=== PATIENT | female | born 1955 | race Caucasian/White ===

== ENCOUNTER → 2018-09-18 | Outpatient (CLI) | payer BC ==
[~2018-09-18] MED LIST: ALEV220C2 PO; ATEN50TA2 PO; COUM2.5T17 PO; LASI20TA3 PO; MULTCAP9 PO; OMEP20CA3 PO; PERC5TAB12 PO; TYLE325T5 PO; TYLE500T78 PO
== END ==
LOC: M PT 15:18
PROVIDERS: ATTEND Orthopaedic Surgery
DX: Z01.818 Encounter for other preprocedural examination (principal)

== ENCOUNTER → 2018-11-07 | Outpatient (CLI) | payer BC ==
[~2018-11-07] MED LIST changes: +ALEV220T22 PO; +AMIT100TA PO; +ATEN50TA9 PO; +MULTCAP PO; -OMEP20CA3 PO; +OMEP20CA4 PO; +OMEP40CA2 PO
[2018-11-07 08:44] LABS: HEMATOCRIT 43.2 % (36.0-47.0); HEMOGLOBIN 13.8 g/dl (12.0-15.5); MEAN CORPUSCULAR HEMOGLOBIN 30.1 pg (27.0-33.0); MEAN CORPUSCULAR HGB CONC 31.9 g/dl (32.0-36.5); MEAN CORPUSCULAR VOLUME 94.1 fl (80.0-96.0); PLATELET COUNT, AUTOMATED 263 10^3/uL (150-450); RED BLOOD COUNT 4.59 10^6/uL (4.00-5.40); WHITE BLOOD COUNT 6.1 10^3/uL (4.0-10.0)
--- NOTE | 2018-11-07 08:44 | REP ---
Clinical: Preoperative assessment for knee replacement . Comparison: 05/09/2015 . Technique: PA and lateral. Findings: The mediastinum and cardiac silhouette are normal. The lung frias are clear and without acute consolidation, effusion, or pneumothorax. The skeletal structures are intact and normal. Impression: 1. No acute cardiopulmonary process. Electronically Signed by Cleve Urbina MD 11/07/2018 08:35 A
[2018-11-07 08:49] LABS: INR 1.01
--- NOTE | 2018-11-07 08:56 | ECGEPIP ---
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
[2018-11-07 09:08] LABS: ALBUMIN 3.4 GM/DL (3.2-5.2); BILIRUBIN,TOTAL 0.3 MG/DL (0.2-1.0); CALCIUM LEVEL 8.7 MG/DL (8.8-10.2); CREATININE FOR GFR 1.11 MG/DL (0.55-1.30); GLOMERULAR FILTRATION RATE 52.5 (>45); POTASSIUM SERUM 3.7 MEQ/L (3.5-5.1); TOTAL PROTEIN 6.5 GM/DL (6.4-8.2)
[2018-11-07 09:24] LABS: ERYTHROCYTE SEDIMENTATION RATE 4 mm/hr (0-30)
== END ==
LOC: M LAB 07:58
PROVIDERS: ATTEND Orthopaedic Surgery
DX: Z01.818 Encounter for other preprocedural examination (principal); M17.11 Unilateral primary osteoarthritis, right knee

== ENCOUNTER 2018-11-29 09:08 | Inpatient (IN) | payer BC ==
--- NOTE | 2018-11-24 11:06 | HPE ---
DATE OF ADMISSION: 11/29/2018 HISTORY OF PRESENT ILLNESS: This is a pleasant 63-year-old female with continuing symptomatic right knee osteoarthritis. She has consented for right total knee arthroplasty per Dr. Pepito Argueta. Medical optimization per Dr. Denilson Islas. X-rays consistent with advanced osteoarthritis. LABORATORY DATA EKG nonspecific T-wave abnormality, sinus rhythm, as read by Dr. Elbert Yeung Chest x-ray, [facility], no acute cardiopulmonary process as read by Dr. Urbina, 11/07/2018 service date. Laboratory studies 10/11/2018 showed glucose fasting 157, BUN slightly elevated at 23, chloride level 109, anion gap 7, calcium level 8.7. ALLERGIES: None known to drugs. MEDICATIONS: - Keflex 500 mg - hydrocodone acetaminophen 5/325 mg - Lasix 40 mg - atenolol 50 mg - multivitamin daily - omeprazole 20 mg - hydroxyzine HCl 25 mg - trazodone HCl 100 mg - prednisone 10 mg - naproxen 500 mg MEDICAL PROBLEM LIST: Right knee osteoarthritis. Hypertension. PAST SURGICAL HISTORY: Total hysterectomy. Gastric bypass. Foot surgery. FAMILY HISTORY: Father secondary to heart failure. PERSONAL HABITS: She is a former smoker, quit 1984. She rarely consumes alcohol. REVIEW OF SYSTEMS: Denies chest pain, shortness of breath, dyspnea on exertion, fever, chills, malaise, upper respiratory or urinary tract symptoms. PHYSICAL EXAMINATION: Height 5 foot 3 inches, weight 207.6, temperature 98, blood pressure 130/72. Pulse 72, respiration 12. This is a pleasant well-developed, well-nourished obese female in no acute distress. Alert and orientated times three. Mood and affect are appropriate. Normocephalic. Neck supple. Negative jugular venous distention (JVD) or bruits. Lungs: Clear. Chest: Regular rate and rhythm. Bowels soft, nontender times four. Bilateral lower extremity compartment supple, soft, nontender to palpation, grossly intact to light touch. No evidence of DVT or compartment syndrome. Skin is intact. Right knee range of motion is limited, irritable through flexion/extension with positive medial joint line tenderness to palpation. IMPRESSION: 1. Right knee symptomatic tricompartmental knee degenerative joint disease (DJD). 2. Patient consented for a right total knee arthroplasty per Dr. Pepito Argueta. 3. Medical optimization per Dr. Denilson Islas. 4. On-call to OR 2 grams IV Kefzol in OR. 5. Sequential compression devices (SCD) and thromboembolic deterrent stockings (TEDS) in OR. MTDD
[~2018-11-29] VITALS: Ht 162.6 cm; Wt 93.6 kg
[~2018-11-29 09:08] MED LIST changes: +LR 1,000 ML IV ONE
[2018-11-29] MEDS ORDERED: PROPOFOL 200 MG/20 ML VIAL As Ordered ONE (10:34)
[2018-11-29] MEDS ORDERED: LIDOCAINE 2% INJ 100 MG/5 ML SDV (FOR ANES.) As Ordered ONE (10:34)
[2018-11-29] MEDS ORDERED: MIDAZOLAM INJ 2 MG/2 ML VIAL (J2250) As Ordered ONE ×3 (10:35→13:02)
[2018-11-29] MEDS ORDERED: fentaNYL 100 MCG/2 ML INJECTION (J3010) As Ordered ONE ×2 (10:35→11:01)
--- NOTE | 2018-11-29 11:16 | HPE ---
DATE OF SERVICE: 11/29/2018 The patient seen and examined. She wished to go ahead with a right knee arthroplasty. She was consented. She understands the nature of the procedure, the risks of bleeding, infection, damage to nerves, vessels, persistent pain, wear loosening, blood clots, medical problems, , among others. She understands that her increased weight puts her at increased risk of complications.
[2018-11-29] MEDS ORDERED: BUPIVACAINE LIPOSOME/PF 1.3% 20ML VIAL (13.3MG/ML)(EXPAREL)(C9290 PER1MG) As Ordered ONE (11:34)
[2018-11-29] MEDS ORDERED: ceFAZolin 1GM INJ (J0690 PER 500MG) As Ordered ONE (11:34)
[2018-11-29] MEDS ORDERED: TRANEXAMIC ACID 100 MG/ML 10ML VIAL As Ordered ONE (11:34)
[2018-11-29] MEDS ORDERED: EPINEPHrine INJ 1 MG/ML 1ML AMP As Ordered ONE (11:34)
[2018-11-29] MEDS ORDERED: fentaNYL 100 MCG/2 ML INJECTION (J3010) IV ONE (11:45)
[2018-11-29] MEDS ORDERED: MIDAZOLAM INJ 2 MG/2 ML VIAL (J2250) IV ONE (11:45)
[2018-11-29] MEDS ORDERED: ePHEDrine SULFATE 25 MG/5 ML(5MG/ML) SYRINGE As Ordered ONE (12:38)
[2018-11-29] MEDS ORDERED: KETOROLAC 60 MG/2 ML VIAL (J1885) As Ordered ONE (12:54)
[2018-11-29] MEDS ORDERED: ONDANSETRON 4MG/2ML VIAL (J2405) As Ordered ONE (12:54)
[2018-11-29] MEDS ORDERED: ROPIvacaine 0.5% 30 ML INJECTION (J2795 PER 1MG) ONE (13:11)
[2018-11-29] MEDS ORDERED: dexameTHASONE 10 MG/1 ML VIAL PRES.FREE (J1100) ONE (13:11)
[2018-11-29] MEDS ORDERED: BUPIVACAINE/DEXTROSE 0.75% 2 ML AMP As Ordered ONE (13:32)
[2018-11-29] MEDS ORDERED: FLEET ENEMA PR PRN (14:00)
[2018-11-29] MEDS ORDERED: LR 1,000 ML IV SCH ×2 (14:00)
[2018-11-29] MEDS ORDERED: MORPHINE 4 MG/ML 1ML VIAL/SYRINGE (J2270) IV PRN ×2 (14:00)
[2018-11-29] MEDS ORDERED: oxyCODONE 5MG TAB PO PRN (14:00)
[2018-11-29] MEDS ORDERED: ACETAMINOPHEN TAB 650MG DOSE (2X325MG) PO PRN (14:00)
[2018-11-29] MEDS ORDERED: ONDANSETRON 4MG/2ML VIAL (J2405) IV PRN ×2 (14:00)
[2018-11-29] MEDS ORDERED: fentaNYL 100 MCG/2 ML INJECTION (J3010) IV PRN (14:00)
[2018-11-29 14:45] VITALS: BP 101/57
--- NOTE | 2018-11-29 15:09 | CR ---
DATE OF CONSULTATION: 11/29/2018 PRIMARY CARE PROVIDER: Dr. Denilson Islas CONSULTANTS: Hospitalist group. The patient is seen postoperative for a total knee arthroplasty. She is recovering well. She has no chest pain, shortness of breath, or dyspnea on exertion. PAST MEDICAL HISTORY: Hypertensive heart disease, gastroesophageal reflux disease (GERD), arthritis, possible depression. SURGICAL HISTORY: Hysterectomy, gastric bypass, redo of gastric bypass 10 years later in 2011, podiatric surgery, left knee replacement in 2016. SOCIAL HISTORY: She is and does not smoke, quit 25 years ago. Drinks alcohol on rare occasions. FAMILY HISTORY: Noncontributory. REVIEW OF SYSTEMS: No chest pain, shortness of breath, palpitations, rectal bleeding, urinary bleeding, epistaxis. PHYSICAL EXAMINATION: 130/84. Vital signs per flow sheet. LUNGS: Clear. HEART: Regular rhythm. ABDOMEN: Soft, nontender. EXTREMITIES: No peripheral edema. IMPRESSION: 1. Hypertension. Would restart beta silvio therapy with atenolol 50 mg daily, hold off on the diuretic component of this until her volume status is assured. 2. Depression/sleep disturbance. Continue amitriptyline 100 mg at bedtime. 3. Gastroesophageal reflux disease (GERD). Continue Protonix 40 mg daily. The hospitalist group will be available for medical issues during the patient's hospitalization.
[2018-11-29 15:15] VITALS: BP 121/61
--- NOTE | 2018-11-29 15:48 | REP ---
REASON: Status post TKR. Total knee prosthetic device has been placed the femoral and tibial components of which are well seated and well approximated. The alignment is near anatomical. There is expected postoperative soft tissue swelling. There is an anterior midline skin staple line in place. IMPRESSION: Status post TKR. Electronically Signed by Rancho Clancy DO 11/29/2018 05:19 P
[2018-11-29 16:15] VITALS: BP 115/62
[2018-11-29] MEDS: PERCOCET 5MG/325MG TAB PO PRN ×2 (16:40→20:51)
[2018-11-29 17:15] VITALS: BP 93/65
[2018-11-29 18:15] VITALS: BP 103/65
[2018-11-29 19:15] VITALS: BP 100/66
[2018-11-29] MEDS: AMITRIPTYLINE 50 MG TAB PO SCH (22:17)
[2018-11-30 00:32] VITALS: BP 112/42
[2018-11-30] MEDS: PERCOCET 5MG/325MG TAB PO PRN ×4 (02:35→19:55)
[2018-11-30 06:00] VITALS: BP 109/46
[2018-11-30 06:59] LABS: HEMATOCRIT 34.3 % (36.0-47.0); HEMOGLOBIN 10.9 g/dl (12.0-15.5); MEAN CORPUSCULAR HEMOGLOBIN 28.9 pg (27.0-33.0); MEAN CORPUSCULAR HGB CONC 31.8 g/dl (32.0-36.5); PLATELET COUNT, AUTOMATED 243 10^3/uL (150-450); RED BLOOD COUNT 3.77 10^6/uL (4.00-5.40); WHITE BLOOD COUNT 10.6 10^3/uL (4.0-10.0)
[2018-11-30] MEDS ORDERED: XARE10TA PO (07:59)
[2018-11-30] MEDS ORDERED: PERC5TAB12 PO (07:59)
[2018-11-30] MEDS: ATENOLOL 50 MG TAB PO SCH (09:00)
[2018-11-30] MEDS: MOM 30ML SUSPENSION UDC PO SCH (10:13)
[2018-11-30] MEDS: OMEPRAZOLE 20 MG CAP PO SCH (10:14)
[2018-11-30] MEDS: SENOKOT S TAB PO SCH ×2 (10:15→21:39)
--- NOTE | 2018-11-30 10:40 | IPNPDOC ---
Subjective Date Seen The patient was seen on 11/30/18. Subjective Chief Complaint/HPI Patient is comfortable offers no new complaints. Physical therapy and has to see the patient. General: Denies: ROS Unobtainable, Chills, Night Sweats, Fatigue, Malaise, Normal Appetite, Other Symptoms Constitutional: Denies: Chills, Fever, Malaise, Night Sweats, Weakness, Fatigue, Weight Loss, Lethargy, Other Eyes: Denies: Pain, Vision change, Conjunctivae inflammation, Eyelid inflammation, Redness, Other ENT: Denies: Head Aches, Ear Pain, Dysphagia, Sinus Congestion, Post Nasal Drip, Sore Throat, Epistaxis, Other Symptoms Skin: Denies: Rash, Lesions, Jaundice, Bruising, Itching, Dry, Breakdown, Nail Changes, Other Pulmonary: Denies: Dyspnea, Cough, Pleuritic Chest Pain, Other Symptoms Cardiovascular: Denies: Chest Pain, Palpitations, Orthopnea, Paroxysmal Noc. Dyspnea, Edema, Lt Headedness, Other Symptoms Gastrointestinal: Denies: Nausea, Vomiting, Abdominal Pain, Diarrhea, Constipation, Melena, Hematochezia, Other Symptoms Neurological: Denies: Weakness, Numbness, Incoordination, Change in speech, Confusion, Seizures, Other Symptoms Psych: Denies: Mood Normal, Anxiety, Depression, Memory Issues, Thoughts of Self Harm, Anger, Thoughts of Harming Other, Other Psych Objective Physical Examination General Exam: Positive: Alert, Cooperative Eye Exam: Positive: PERRLA, Conjunctiva & lids normal Chest Exam: Positive: Clear to auscultation, Normal air movement Heart Exam: Positive: Rate Normal, Normal S1, Normal S2 Abdomen Exam: Positive: Normal bowel sounds, Soft Extremity Exam: Positive: Normal pulses, Other (status post right knee surgery) Skin Exam: Positive: Nl turgor and temperature Neuro Exam: Positive: Strength at 5/5 X4 ext, Sensation Intact Assessment /Plan Problems (1) S/P TKR (total knee replacement) Status: Acute Problem Text: Status post right total knee arthroplasty Pain management and DVT prophylaxis as per orthoped physical therapy consultation is pending Patient wishes to go subacute area facility was discharged from here (2) HTN (hypertension) Status: Chronic (3) Depression Status: Chronic Plan/VTE VTE Prophylaxis Ordered?: Yes VS, I&O, 24H, Fishbone Vital Signs/I&O Vital Signs Date Time Temp Pulse Resp B/P (MAP) Pulse Ox O2 Delivery O2 Flow Rate FiO2 11/30/18 09:30 16 11/30/18 09:00 70 109/46 11/30/18 06:00 98.5 93 11/29/18 13:59 3 I&O- Last 24 Hours up to 6 AM 11/30/18 06:00 Intake Total 1410 ml Balance 1410 ml Laboratory Data 24H LABS Laboratory Tests 2 11/30/18 06:17: Nucleated Red Blood Cells % (auto) 0.0 CBC/BMP Laboratory Tests 11/30/18 06:17 Red Blood Count 3.77 L, Mean Corpuscular Volume 91.0, Mean Corpuscular Hemoglobin 28.9, Mean Corpuscular Hemoglobin Concent 31.8 L, Red Cell Distribution Width 14.3 KATHIA EDDY MD Nov 30, 2018 10:40
[2018-11-30 14:00] VITALS: BP 116/69
[2018-11-30] MEDS: MIRALAX *UNIT DOSE* 17GM PACKET PO SCH (14:25)
[2018-11-30] MEDS ORDERED: RIVAROXABAN 10 MG TAB (XARELTO) PO SCH (18:00)
[2018-11-30 21:11] VITALS: BP 116/69
--- NOTE | 2018-11-30 21:22 | RO ---
DATE OF PROCEDURE: 11/29/2018 PREOPERATIVE DIAGNOSIS: Right knee osteoarthritis. POSTOPERATIVE DIAGNOSIS: Right knee osteoarthritis. PROCEDURE: Right total knee arthroplasty using an Attune posterior stabilized rotating platform size 5 narrow with a 4 tibial tray, 7 polyethylene and a 32 patellar button. SURGEON: Dr. Pepito Argueta MANUFACTURING SUPERVISOR: Marlon Montes De Oca ANESTHESIA: Spinal. ESTIMATED BLOOD LOSS: Less than 50 mL. COMPLICATIONS: None. INDICATIONS: This is a 63-year-old woman with persistent knee pain, and she wished to go ahead with a knee replacement. Preop clearance was obtained. DESCRIPTION OF PROCEDURE: The patient was taken to operating room, placed in the supine position after spinal anesthesia was induced. The right lower extremity was prepped and draped in the usual sterile fashion. Time-out was performed. Tourniquet was inflated. I then created a longitudinal incision over the anterior aspect of the knee and sharp dissection was carried down through subcutaneous tissue until the fascia was encountered. I then performed a medial parapatellar arthrotomy, everting the patella. This was relatively difficult because of her morbid obesity. I was able to then expose the knee, flexed the knee up, used the canal initiating reamer followed by the intramedullary guide set at 9 mm cut and 5 degrees of valgus. The distal femoral cut was then made, the sizing guide was then used, and it was sized to be a 5 femur, so the drill holes were placed in the end of the femur and the cutting block was then secured. We made the remaining four cuts. I then prepared the tibia. The tibial alignment guide was then used in the appropriate amount of valgus and posterior slope was dialed in. I made the proximal tibia cut, protecting soft tissues. It was evident at this point despite protecting the posterior cruciate ligament (PCL), that the PCL was deficient and I elected to go ahead with posterior stabilized knee. We did the box cut on the femoral side. I had used the reporting coordinator to remove soft tissue and osteophytes from either side of the knee. We then prepared the tibia. The size 4 tray fit nicely. This was drilled and broached, and the trial components were then placed. The size 7 spacer was seen to be the most appropriate. Once the trial components were placed, I was satisfied with the size 7 posterior stabilized. The box cut had been made. I then performed a lateral release because it was evident that the patella was not going to track well. Freehand cut the patella, removing about 6 or 7 mm of bone, sized to be a 32. The drill holes were placed and then the trial patella was placed. I put the knee through a range of motion, the patella tracked quite nicely. I was very pleased with the fit and position of the components and the soft tissue balance. I removed the trial components, irrigated copiously. I placed the drill holes in the end of the femur; prior to this, the Exparel was injected the deep tissues. The nurse assistant prepared the bone cement. I then cemented on the tibial tray, followed by the femoral component. The polyethylene was inserted and as the patella was cemented on, we removed all excess bone cement. The knee was brought out in extension and further irrigation was performed. We had carefully irrigated and dried the bony surfaces prior to cementing. TXA was then placed in the deep wound for hemostasis. We then repaired the fascia with interrupted #1 Vicryl suture and a running Stratafix suture once the cement had hardened. I had performed a final deep irrigation just prior to final wound closure and then irrigated the subcu, closed that with #2-0 Vicryl, and the skin with jay. Sterile dressing was applied. Tourniquet was deflated after the cement had hardened, and she was taken to the recovery in stable condition. There were no known complications. The plan will be routine postop. The nurse assistant was instrumental in holding retractors and mixing the bone cement and making one of the cuts, assisting in wound closure. This is coded as an unusually difficult procedure due to her significantly elevated body mass index (BMI) in the 36-37 range. She had a very large thigh and significant subcutaneous fatty tissue, which made the procedure much more difficult. It was also limited in flexion due to her soft tissue impingement from her calf to her posterior thigh, which may restrict her motion postoperatively.
[2018-11-30] MEDS: AMITRIPTYLINE 50 MG TAB PO SCH (21:40)
[2018-12-01] MEDS: PERCOCET 5MG/325MG TAB PO PRN ×3 (00:02→12:14)
[2018-12-01 06:13] VITALS: BP 126/73
[2018-12-01 08:36] VITALS: BP 126/73
[2018-12-01] MEDS: SENOKOT S TAB PO SCH (08:36)
[2018-12-01] MEDS: MIRALAX *UNIT DOSE* 17GM PACKET PO SCH (08:36)
[2018-12-01] MEDS: OMEPRAZOLE 20 MG CAP PO SCH (08:36)
[2018-12-01] MEDS: ATENOLOL 50 MG TAB PO SCH (08:36)
[2018-12-01] MEDS: MOM 30ML SUSPENSION UDC PO SCH (08:36)
--- NOTE | 2018-12-01 11:09 | IPNPDOC ---
Subjective Date Seen The patient was seen on 12/01/18. Subjective Chief Complaint/HPI Rell is comfortable offers no new complaints at the present time. Blood pressure under well control General: Denies: ROS Unobtainable, Chills, Night Sweats, Fatigue, Malaise, Normal Appetite, Other Symptoms Constitutional: Denies: Chills, Fever, Malaise, Night Sweats, Weakness, Fatigue, Weight Loss, Lethargy, Other Eyes: Denies: Pain, Vision change, Conjunctivae inflammation, Eyelid inflammation, Redness, Other ENT: Denies: Head Aches, Ear Pain, Dysphagia, Sinus Congestion, Post Nasal Drip, Sore Throat, Epistaxis, Other Symptoms Skin: Denies: Rash, Lesions, Jaundice, Bruising, Itching, Dry, Breakdown, Nail Changes, Other Pulmonary: Denies: Dyspnea, Cough, Pleuritic Chest Pain, Other Symptoms Cardiovascular: Denies: Chest Pain, Palpitations, Orthopnea, Paroxysmal Noc. Dyspnea, Edema, Lt Headedness, Other Symptoms Gastrointestinal: Denies: Nausea, Vomiting, Abdominal Pain, Diarrhea, Constipation, Melena, Hematochezia, Other Symptoms Genitourinary: Denies: Dysuria, Frequency, Incontinence, Hematuria, Retention, Other Symptoms Hematologic: Denies: Bruising, Bleeding Excessively, Petecchia, Purpura, Enlarged Lymph Nodes, Other Hematologic Endocrine: Denies: Polydipsia, Polyphagia, Polyuria, Heat Intolerance, Cold Intolerance, Other Endocrine Sx Psych: Denies: Mood Normal, Anxiety, Depression, Memory Issues, Thoughts of Self Harm, Anger, Thoughts of Harming Other, Other Psych Objective Physical Examination General Exam: Positive: Alert, Cooperative Eye Exam: Positive: PERRLA, Conjunctiva & lids normal Chest Exam: Positive: Clear to auscultation, Normal air movement Heart Exam: Positive: Rate Normal, Normal S1, Normal S2 Abdomen Exam: Positive: Normal bowel sounds, Soft Extremity Exam: Positive: Normal pulses, Other (status post right knee surgery) Skin Exam: Positive: Nl turgor and temperature Neuro Exam: Positive: Strength at 5/5 X4 ext, Sensation Intact Assessment /Plan Problems (1) S/P TKR (total knee replacement) Status: Acute Problem Text: Status post right total knee arthroplasty Pain management and DVT prophylaxis as per orthoped Physical therapy in progress Patient is scheduled to be discharged to subacute care facility today (2) HTN (hypertension) Status: Chronic Problem Text: Blood pressure under well control (3) Depression Status: Chronic Plan/VTE VTE Prophylaxis Ordered?: Yes VS, I&O, 24H, Fishbone Vital Signs/I&O Vital Signs Date Time Temp Pulse Resp B/P (MAP) Pulse Ox O2 Delivery O2 Flow Rate FiO2 12/01/18 08:36 90 126/73 12/01/18 06:19 18 12/01/18 06:13 99.7 95 11/29/18 13:59 3 I&O- Last 24 Hours up to 6 AM 12/01/18 06:00 Intake Total 1175 ml Output Total 400 ml Balance 775 ml KATHIA EDDY MD Dec 01, 2018 11:09
== END 2018-12-01 13:10 | DRG 302 ==
LOC: M OR 09:08 → M MS5PR 14:20
PROVIDERS: ADMIT Orthopaedic Surgery; ATTEND Orthopaedic Surgery
PROC: 0SRC0J9 Replacement of Right Knee Joint with Synthetic Substitute, Cemented, Open Approach (ICD-10-PCS; principal; 2018-11-29 12:05)
DX: M17.11 Unilateral primary osteoarthritis, right knee (principal); E66.01 Morbid (severe) obesity due to excess calories; I10 Essential (primary) hypertension; K21.9 Gastro-esophageal reflux disease without esophagitis; F32.9 Major depressive disorder, single episode, unspecified; Z98.84 Bariatric surgery status; Z90.710 Acquired absence of both cervix and uterus; Z96.652 Presence of left artificial knee joint; Z68.37 Body mass index [BMI] 37.0-37.9, adult; Z87.891 Personal history of nicotine dependence; Z79.891 Long term (current) use of opiate analgesic; Z79.52 Long term (current) use of systemic steroids; Z79.899 Other long term (current) drug therapy; Z79.1 Long term (current) use of non-steroidal anti-inflammatories (NSAID)

== ENCOUNTER 2019-01-03 11:02 | Outpatient (RCR) | payer BC ==
[~2019-01-03 11:02] MED LIST changes: -LR 1,000 ML IV ONE; +XARE10TA PO
== END 2019-01-08 ==
LOC: M PT 11:02
PROVIDERS: ATTEND Internal Medicine
DX: Z51.89 Encounter for other specified aftercare (principal); R26.9 Unspecified abnormalities of gait and mobility; M62.81 Muscle weakness (generalized); Z96.651 Presence of right artificial knee joint

== ENCOUNTER 2019-11-07 11:30 | Outpatient (RCR) | payer BC ==
[~2019-11-07 11:30] MED LIST changes: +OMEP1CAP73 PO; -OMEP20CA4 PO; -OMEP40CA2 PO; +OMEP40CA97 PO
== END 2019-11-09 | disposition home or self-care (01) ==
LOC: M PT 11:30
PROVIDERS: ATTEND Physician Assistant Medical
DX: M25.571 Pain in right ankle and joints of right foot (principal)
CPT/HCPCS: 97032; 97035; 97110; 97161; G0283

== ENCOUNTER → 2020-06-24 | Outpatient (CLI) | payer MEDICARE ==
--- NOTE | 2020-06-24 12:53 | REPMRS ---
Patient History The patient states she has not had a clinical breast exam in over a year. Patient is postmenopausal and has history of endometrial cancer at age 46. No known family history of cancer. No Hormone Replacement Therapy Digital Woman Screen Mammo: June 24, 2020 - Exam #: [id number] Bilateral CC and MLO view(s) were taken. Technologist: Cecilia Anne, Technologist Prior study comparison: March 01, 2019, bilateral digital mammo screening bilat, performed at [email or web address] [facility]. February 28, 2018, bilateral digital mammo screening bilat, performed at [facility] [email or web address] [facility]. August 30, 2016, bilateral digital mammo screening bilat, performed at [facility]. FINDINGS: The breast tissue is almost entirely fat. The Volpara volumetric breast density category is: A. There has been no change in the appearance of the mammogram from the prior studies. There is no interval development of dominant mass, architectural distortion, or grouped microcalcification typical of malignancy. 3-D tomosynthesis shows no additional findings. Assessment: BI-RADS/ACR category 1 mammogram. Negative Mammogram. Recommendation Routine screening mammogram of both breasts in 1 year (for women over age 40). This patient's [facility] Lifetime Breast Cancer RIsk is estimated at 5.0 %. This mammogram was interpreted with the aid of an FDA-approved computer-aided dectection system. Electronically Signed By: Bobby Wiggins MD 06/24/20 [id number]
== END ==
LOC: M WHC 11:23
PROVIDERS: ATTEND Internal Medicine
DX: Z12.31 Encounter for screening mammogram for malignant neoplasm of breast (principal)

== ENCOUNTER → 2021-02-26 | Outpatient (CLI) | payer MEDICARE ==
[~2021-02-26] MED LIST changes: +ACET500T15 PO; +MIRT-62 PO; +NORT50CA PO; +OMEP40CA4 PO; -OMEP40CA97 PO; +VITMTA PO
== END ==
LOC: M LABSMTC 09:23
PROVIDERS: ATTEND Anesthesiology
DX: Z01.818 Encounter for other preprocedural examination (principal); Z11.52 Encounter for screening for COVID-19

== ENCOUNTER 2021-03-03 08:39 | Day surgery (SDC) | payer MEDICARE ==
[~2021-03-03] VITALS: Ht 162.6 cm; Wt 107.3 kg
[~2021-03-03 08:39] MED LIST changes: +NS 1,000 ML IV ONE
[2021-03-03] MEDS ORDERED: atenoloL 50 MG TAB PO ONE (09:20)
[2021-03-03] MEDS ORDERED: CHLORTHALIDONE 25 MG TAB PO ONE (09:20)
[2021-03-03 09:29] VITALS: BP 165/88
[2021-03-03] MEDS ORDERED: propofoL 200 MG/20 ML VIAL As Ordered ONE (10:26)
--- NOTE | 2021-03-03 10:39 | ROOR ---
Patient Name: Katie Mcclure Procedure Date: 03/03/2021 10:17 AM Date of : 1955 Age: 65 Room: [facility] Gender: Female Note Status: Finalized Procedure: Colonoscopy Indications: High risk colon cancer surveillance: Personal history of colonic polyps Providers: Sanford Mahoney Jr, MD Referring MD: VINCENT BHATT MD Requesting Provider: Medicines: Propofol per Anesthesia Complications: No immediate complications. Procedure: Pre-Anesthesia Assessment: - Prior to the procedure, a History and Physical was performed, and patient medications and allergies were reviewed. The patient is competent. The risks and benefits of the procedure and the sedation options and risks were discussed with the patient. All questions were answered and informed consent was obtained. Patient identification and proposed procedure were verified by the physician and the nurse in the pre-procedure area and in the procedure room. Mental Status Examination: alert and oriented. Airway Examination: normal oropharyngeal airway and neck mobility. Respiratory Examination: clear to auscultation. CV Examination: normal. ASA Grade Assessment: II - A patient with mild systemic disease. After reviewing the risks and benefits, the patient was deemed in satisfactory condition to undergo the procedure. The anesthesia plan was to use moderate sedation / analgesia (conscious sedation). Immediately prior to administration of medications, the patient was re-assessed for adequacy to receive sedatives. The heart rate, respiratory rate, oxygen saturations, blood pressure, adequacy of pulmonary ventilation, and response to care were monitored throughout the procedure. The physical status of the patient was re-assessed after the procedure. The Colonoscope was introduced through the anus and advanced to the cecum, identified by appendiceal orifice and ileocecal valve. The colonoscopy was performed without difficulty. The patient tolerated the procedure well. Findings: The rectum, recto-sigmoid colon, sigmoid colon, descending colon, transverse colon, ascending colon, cecum, appendiceal orifice and ileocecal valve appeared normal. Impression: - The rectum, recto-sigmoid colon, sigmoid colon, descending colon, transverse colon, ascending colon, cecum, appendiceal orifice and ileocecal valve are normal. - No specimens collected. Recommendation: - Discharge patient to home (ambulatory). - Repeat colonoscopy in 5 years for surveillance. Procedure Code(s): --- Professional --- 16352, Colonoscopy, flexible; diagnostic, including collection of specimen(s) by brushing or washing, when performed (separate procedure) Diagnosis Code(s): --- Professional --- Z86.010, Personal history of colonic polyps CPT copyright 2019 [employer]. All rights reserved. The codes documented in this report are preliminary and upon data coder operator review may be revised to meet current compliance requirements. Sanford Mahoney MD Sanford Mahoney Jr, MD 03/03/2021 10:38:58 AM Electronically signed by Sanford Mahoney Jr, MD Number of Addenda: 0 Note Initiated On: 03/03/2021 10:17 AM Estimated Blood Loss: Estimated blood loss: none.
[2021-03-03 10:55] VITALS: BP 107/59
== END 2021-03-03 11:08 | disposition home or self-care (01) ==
LOC: M OPP 08:39
PROVIDERS: ATTEND Surgery
DX: Z12.11 Encounter for screening for malignant neoplasm of colon (principal); Z86.010 Personal history of colon polyps; I10 Essential (primary) hypertension; Z98.84 Bariatric surgery status; Z79.899 Other long term (current) drug therapy

== ENCOUNTER → 2022-01-12 | Outpatient (CLI) | payer MEDICARE ==
[~2022-01-12] MED LIST changes: -NS 1,000 ML IV ONE
== END ==
LOC: M WUC 14:12
PROVIDERS: ATTEND Internal Medicine
DX: J15.9 Unspecified bacterial pneumonia (principal)

== ENCOUNTER → 2024-01-06 | Outpatient (CLI) | payer MEDICARE ==
[~2024-01-06] MED LIST changes: -MIRT-62 PO; +MIRT-88 PO
== END ==
LOC: M WHC 10:42
PROVIDERS: ATTEND Internal Medicine
DX: Z12.31 Encounter for screening mammogram for malignant neoplasm of breast (principal)